=== PATIENT | male | born 2000 | race Caucasian/White ===

== ENCOUNTER 2022-02-10 14:07 | Emergency (ER) | payer BC, OTHER, SELFPAY ==
[2022-02-10 14:24] VITALS: BP 118/76; PULSE 71; RESP 16; TEMP 36.4; O2SAT 100
--- NOTE | 2022-02-10 14:54 | ED.GENADULT ---
HPI - General Adult General Chief complaint: Skin/Abscess/Foreign Body Stated complaint: rash, Std check Time Seen by Provider: 02/10/22 14:44 History of Present Illness HPI narrative: 21-year-old male presents emergency room for concerns over possible HIV exposure. States 2 weeks ago he had protected sex with another man. Patient states he is asymptomatic. Denies any fevers or body aches. Denies dysuria, purulent penile drainage, testicle pain or abdominal pain. Related Data Allergies Allergy/AdvReac Type Severity Reaction Status Date / Time gluten AdvReac Diarrhea Verified 02/10/22 14:46 Review of Systems Review of Systems: CONSTITUTIONAL: Denies fever, chills, or sweats. EYES: Denies visual changes, redness, or discharge. ENT: Denies rhinorrhea, congestion, sore throat, or otalgia. CARDIOVASCULAR: Denies chest pain, palpitations, or edema. RESPIRATORY: Denies cough or dyspnea. GASTROINTESTINAL: Denies abdominal pain, nausea, vomiting, or diarrhea. GENITOURINARY: Denies dysuria or hematuria. SKIN: Denies rash or itching. MUSCULOSKELETAL: Denies back pain, joint pain, or myalgia. NEUROLOGIC: Denies headache, numbness, dizziness, or weakness. PSYCHIATRIC: Denies anxiety or depression. Exam Narrative: GENERAL: Well-appearing, well-nourished, no physical limitations, and in no acute distress. HEAD: Normocephalic, atraumatic. EYES: Conjunctivae normal, PERRLA and EOMI. CHEST: Clear to auscultation. No respiratory distress. No wheezes rales or rhonchi. HEART: Regular rate and rhythm. No murmur heard. Normal peripheral pulses. ABDOMEN: Soft, nontender, nondistended, normal active bowel sounds. EXTREMITIES: Normal range of motion. No edema. No clubbing or cyanosis SKIN: Warm, dry, no rash. No noted wounds NEURO: No focal deficits. Alert and oriented x3. MAEW. CN's II-XI intact bilaterally, normal gait PSYCH: Cooperative. Normal mood and affect. Anxious Course Vital Signs Vital signs: Vital Signs Temperature 36.4 C 02/10/22 14:24 Pulse Rate 71 02/10/22 14:24 Respiratory Rate 16 02/10/22 14:24 Blood Pressure 118/76 02/10/22 14:24 Pulse Oximetry 100 02/10/22 14:24 Oxygen Delivery Room Air 02/10/22 14:24 Temperature 36.4 C 02/10/22 14:24 Pulse Rate 71 02/10/22 14:24 Respiratory Rate 16 02/10/22 14:24 Blood Pressure 118/76 02/10/22 14:24 Pulse Oximetry 100 02/10/22 14:24 Oxygen Delivery Room Air 02/10/22 14:24 Medical Decision Making Vital Signs Vital Signs: Vital Signs Temperature 36.4 C 02/10/22 14:24 Pulse Rate 71 02/10/22 14:24 Respiratory Rate 16 02/10/22 14:24 Blood Pressure 118/76 02/10/22 14:24 Pulse Oximetry 100 02/10/22 14:24 Oxygen Delivery Room Air 02/10/22 14:24 Temperature 36.4 C 02/10/22 14:24 Pulse Rate 71 02/10/22 14:24 Respiratory Rate 16 02/10/22 14:24 Blood Pressure 118/76 02/10/22 14:24 Pulse Oximetry 100 02/10/22 14:24 Oxygen Delivery Room Air 02/10/22 14:24 Discharge Plan Discharge Clinical Impression: Exposure to HIV Patient Disposition: Home, Self-Care Condition: Stable Instructions: Antibiotic Form Follow-up/Referrals: PHYSICIAN,MOTION STUDY ENGINEER [Primary Care Provider] - Time of Disposition: 14:53
[2022-02-10 16:30] LABS: HIV 1/2 Ab P24 Ag Result Negative (Negative)
== END 2022-02-10 15:30 | disposition home or self-care (01) ==
LOC: ANHED 15:28
PROVIDERS: Emergency Provider Nurse Practitioner Family
DX: Z20.6 Contact with and (suspected) exposure to human immunodeficiency virus [HIV] (principal)
CPT/HCPCS: 36415; 86703; 99283; G0432